=== PATIENT | female | born 1965 | race Caucasian/White ===

== ENCOUNTER 2016-08-23 08:24 | Day surgery (SDC) | payer OTHER ==
[~2016-08-23] VITALS: Ht 165.1 cm; Wt 160.0 kg
[~2016-08-23 08:24] MED LIST: 0.9% Sodium Chloride 1,000 ML IV SCH; ALBU8.5H2 INHALATION; BECL8.7A6 INHALATION; ESTR10TA VG; Sodium Chloride LOK Flush 10 mL Syringe IV PRN; fentaNYL-PF 50 mCg/mL 2 mL Inj IVPUSH PRN
[2016-08-23 08:45] VITALS: BP 106/63; PULSE 61; RESP 16; O2SAT 97
--- NOTE | 2016-08-23 09:55 | PCM.ENDCOL ---
Colonoscopy Date of Service: Aug 23, 2016 Physician Gabino Lozano MD Pre Procedure Diagnosis: Screening Post Procedure Dx & Findings: Polyp hemorrhoids Procedure Colonoscopy Prep adequate Withdrawal 14 minutes PROCEDURE IN DETAIL: After unremarkable rectal examination Olympus video colonoscope was inserted into patient's anal canal was advanced the cecum. Landmarks were identified including the ileocecal valve and the appendiceal orifice. Scope was withdrawn systematically. In the rectosigmoid junction, there was a 1 mm polyp which was removed completely using cold forceps. Also there was a 3-4 mm polyp which was removed completely using cold snare. Rectum retroflexion was done which showed hemorrhoids. Anal canal was inspected carefully on the way out and hemorrhoids noted. The mucosa of the cecum, ascending, transverse, descending, sigmoid, rectal mucosa lined with whitish, pink, smooth, glistening, normal-appearing mucosa, normal fine branching, underlying vascularity, normal haustra. The patient tolerated procedure and was transported to observation area. Impression Polyps 2 status post complete removal Hemorrhoids Recommendation Repeat colonoscopy 5 years Presedation Assessment Risks and Benefits Informed consent was obtained from the patient after all risks and benefits including but not limited to drug reaction, infection, pain, bleeding, perforation, as well as alternatives were discussed. Patient monitoring Continuous pulse oximetry, cardiac monitoring, blood pressure monitoring, IV access, and oxygen at 2L per nasal cannula. Periprocedural Fentanyl: Fentanyl 100mcg Incrementally Midazolam: Midazolam 5mg Incrementally Complications There were no periprocedural complications identified. Post Procedure Plan Post Procedure Recommendations 1. Restrict activities today. 2. Resume normal activities in the morning. 3. Resume medications. 4. Patient informed of normal post procedure side effects as bloating, drowsiness, blood streaking in the stool. 5. average risk CRCS. If colon polyps come back as: -Hyperplastic- can repeat colonoscopy in 10 years -Tubular adenoma- repeat colonoscopy in 5 years -Tubulovillous/villous adenoma- repeat colonoscopy in 3 years -If any dysplasia- return to clinic as soon as possible 6. Please don't hesitate to call me with any questions. Gabino Lozano MD Aug 23, 2016 09:55
[2016-08-23 09:58] VITALS: BP 108/69; PULSE 48; RESP 16; O2SAT 98
[2016-08-23 10:08] VITALS: BP 104/67; PULSE 54; RESP 16; O2SAT 99
[2016-08-23 10:18] VITALS: BP 109/63; PULSE 49; RESP 16; O2SAT 96
--- NOTE | 2016-08-24 14:28 | PATH ---
SURGICAL PATHOLOGY Attending Physician:Gabino Lozano M.D. CASE STATUS: Signed Out PATIENT NAME: ANDRIY DENNIS PID: [id number] : 1965 DATE COLLECTED:08/23/2016 16:02 SPECIMEN: Rectum, Biopsy CLINICAL HISTORY: 1).RECTAL POLYPS X2 FINAL DIAGNOSIS: 1.RECTAL POLYPS: HYPERPLASTIC POLYPS. ICD10 CODE K62.1 GROSS DESCRIPTION: Received in formalin, labeled with the patient' s name and "rectal polyps", are two fragments of zheng, soft tissue ranging in size from 0.2 x 0.1 x 0.1 cm to 0.6 x 0.3 x 0.2 cm. All fragments are totally submitted in one cassette. ([id number]) MICRO DESCRIPTION: See diagnosis. ICD-9 CODES: CPT CODES: 1: 93290 Electronically Signed Out Malinda Shah MD [facility] [address], [place] [address] Technical component performed at [facility], [facility] [address], [place], [address]
== END 2016-08-23 23:59 | disposition home or self-care (01) ==
LOC: END 08:24
PROVIDERS: ATTEND Internal Medicine
DX: Z12.11 Encounter for screening for malignant neoplasm of colon (principal); K62.1 Rectal polyp; K64.9 Unspecified hemorrhoids
CPT/HCPCS: 45380; 45385; 99153; G0500; J2250; J3010; J7030